=== PATIENT | male | born 1965 | race African-American/Black ===

== ENCOUNTER 2024-02-16 10:57 | Emergency (ER) | payer BC ==
[~2024-02-16] VITALS: Ht 177.8 cm; Wt 74.8 kg
[2024-02-16] MEDS ORDERED: KETOROLAC TROMETHAMINE INJ 30 MG/ML VIAL ONE (11:32)
[2024-02-16] MEDS: KETOROLAC TROMETHAMINE INJ 30 MG/ML VIAL IM ONE (11:34)
[2024-02-16 13:29] VITALS: BP 148/89; TEMP 98.2; O2SAT 98
== END 2024-02-16 13:33 | disposition home or self-care (01) ==
LOC: ER 11:01
DX: M54.6 Pain in thoracic spine (principal); M25.512 Pain in left shoulder; Z88.5 Allergy status to narcotic agent; Z88.8 Allergy status to other drugs, medicaments and biological substances; Z59.00 Homelessness unspecified
CPT/HCPCS: 99284; 71045; 96372; 73010; 82962; J1885

== ENCOUNTER 2024-05-31 12:45 | Emergency (ER) | payer BC ==
[~2024-05-31] VITALS: Ht 177.8 cm; Wt 76.2 kg
[2024-05-31] MEDS ORDERED: IBUP-1490 PO (18:05)
[2024-05-31 18:08] VITALS: BP 128/73; TEMP 98.2; O2SAT 95
== END 2024-05-31 18:10 | disposition home or self-care (01) ==
LOC: ER 12:45
DX: M79.662 Pain in left lower leg (principal); Z88.5 Allergy status to narcotic agent
CPT/HCPCS: 93971-TC

== ENCOUNTER 2024-06-02 08:10 | Emergency (ER) | payer BC, MEDICAID ==
[~2024-06-02] VITALS: Ht 177.8 cm; Wt 77.1 kg
[~2024-06-02 08:10] MED LIST: IBUP-1490 PO
[2024-06-02 08:14] VITALS: BP 151/90; TEMP 98.1
[2024-06-02] MEDS ORDERED: GLY/480L3 TP (08:39)
[2024-06-02] MEDS ORDERED: PERM60CR4 TP (08:39)
[2024-06-02 08:53] VITALS: O2SAT 98
== END 2024-06-02 08:54 | disposition home or self-care (01) ==
LOC: ER 08:12
DX: L30.9 Dermatitis, unspecified (principal); Z88.5 Allergy status to narcotic agent

== ENCOUNTER 2024-08-09 16:44 | Emergency (ER) | payer BC, MEDICAID ==
[~2024-08-09] VITALS: Ht 177.8 cm; Wt 74.8 kg
[~2024-08-09 16:44] MED LIST changes: +GLY/480L3 TP; +PERM60CR4 TP
[2024-08-09 17:28] LABS: BASOPHILS # (AUTO) 0.1 K/uL (0.0-0.2); BASOPHILS % (AUTO) 0.9 % (0.0-2.0); EOSINOPHILS # (AUTO) 0.2 K/uL (0.0-0.7); EOSINOPHILS % (AUTO) 1.9 % (0.0-6.0); HEMATOCRIT 43 % (39-51); HEMOGLOBIN 14.7 g/dL (13.5-17.5); LYMPHOCYTES # (AUTO) 1.1 K/uL (0.8-4.8); LYMPHOCYTES % (AUTO) 11.5 % (20.0-44.0); MEAN CORPUSCULAR HEMOGLOBIN 32 PG (26.0-33.0); MEAN CORPUSCULAR HGB CONC 35 g/dl (31.0-36.0); MEAN CORPUSCULAR VOLUME 93 fL (80-96); MONOCYTES # (AUTO) 1.1 K/uL (0.1-1.30); NEUTROPHILS # (AUTO) 6.7 K/uL (1.8-8.9); NEUTROPHILS % (AUTO) 73.7 % (43.0-81.0); PLATELET COUNT (AUTO) 240 K/uL (150-450); RED BLOOD CELL COUNT(AUTO) 4.56 MIL/uL (4.5-6.0); RED CELL DISTRIBUTION WIDTH 13.8 % (11.5-15.0); WHITE BLOOD COUNT (AUTO) 9.2 K/uL (4.3-11.0)
[2024-08-09 17:42] LABS: ALANINE AMINOTRANSFERASE 25 U/L (12-78); ALBUMIN 3.9 g/dL (3.4-5.0); ALCOHOL, BLOOD < 3 mg/dL (0-10); ALKALINE PHOSPHATASE 77 U/L (46-116); ASPARTATE AMINOTRANSFERASE 33 U/L (15-37); BILIRUBIN,DIRECT 0.5 mg/dL (0.0-0.2); BILIRUBIN,TOTAL 2.7 mg/dL (0.2-1.0); CARBON DIOXIDE 25 mmol/L (21-32); CHLORIDE 106 mmol/L (98-107); CREATININE 0.9 mg/dL (0.6-1.3); GLUCOSE 88 mg/dL (74-106); POTASSIUM 3.7 mmol/L (3.5-5.1); SODIUM SERUM 141 mmol/L (136-145); TOTAL PROTEIN, SERUM 7.5 g/dL (6.4-8.2); UREA NITROGEN, BLOOD 20 mg/dL (7-18)
[2024-08-09 17:47] LABS: CALCIUM, SERUM 9.1 mg/dL (8.5-10.1)
[2024-08-09 17:48] LABS: ACETAMINOPHEN <10 ug/ml (10-30); SALICYLATE < 2.3 mg/dL (2.8-20.0)
[2024-08-09 18:47] LABS: APPEARANCE,URINE CLEAR (CLEAR); BILIRUBIN,URINE 1+ (NEGATIVE); BLOOD, URINE NEGATIVE Ery/uL (NEGATIVE); COLOR,URINE YELLOW (YELLOW); KETONES,URINE 2+ mg/dL (NEGATIVE); LEUKOCYTE ESTERASE ,URINE NEGATIVE (NEGATIVE); NITRITE, URINE NEGATIVE (NEGATIVE); PH,URINE 5.5 (5.0-8.0); PROTEIN,URINE 1+ mg/dl (NEGATIVE); UGLUCOSE NEGATIVE (NEGATIVE); UROBILINOGEN,URINE 0.2 EU/dL (0.2)
[2024-08-09 19:00] LABS: ADD URINE CULTURE NO; BACTERIA,URINE None seen /HPF (None Seen); MUCUS,URINE Moderate /LPF (None Seen); SQUAMOUS EPITHELIAL CELL,UR 0-2 /HPF (None Seen); URINE AMORPHOUS URATE Few /HPF (None Seen); WBC,URINE 0-2 /HPF (0-3)
[2024-08-09 19:09] LABS: AMPHETAMINE, URINE POSITIVE (NEGATIVE); BARBITURATE, URINE NEGATIVE (NEGATIVE); BENZODIAZEPINE, URINE NEGATIVE (NEGATIVE); CANNABINOID, URINE NEGATIVE (NEGATIVE); COCCAINE, URINE NEGATIVE (NEGATIVE); OPIATE, URINE NEGATIVE (NEGATIVE); PHENCYCLIDINE SCREEN,URINE NEGATIVE (NEGATIVE)
[2024-08-10 02:00] VITALS: BP 112/71; TEMP 98.4; O2SAT 97
== END 2024-08-10 02:11 | disposition home or self-care (01) ==
LOC: ER 16:50
DX: R45.1 Restlessness and agitation (principal); F15.10 Other stimulant abuse, uncomplicated; F25.9 Schizoaffective disorder, unspecified; R31.29 Other microscopic hematuria; Z88.5 Allergy status to narcotic agent; Z20.822 Contact with and (suspected) exposure to COVID-19
CPT/HCPCS: 36415; 80048-TC; 80076-TC; 81001; 85025-TC; G0480